=== PATIENT | male | born 1960 | race Caucasian/White ===

== ENCOUNTER 2024-05-23 13:39 | Emergency (ER) | payer BC, SELFPAY ==
[2024-05-23] VITALS (32 sets, daily range): BP systolic 156–215; BP diastolic 65–122; PULSE 72–87; RESP 11–22; TEMP 36.9; O2SAT 94–100
--- NOTE | 2024-05-23 14:00 | DI.CT_ITS ---
Exam(s) CT HEAD CERVICAL SPINE WO EXAM: CT HEAD CERVICAL SPINE WO CLINICAL HISTORY: fall, [place]. TECHNIQUE: Imaging Protocol: Axial computed tomography images with coronal and sagittal reformatted images were created and reviewed COMPARISON: No exams were available for comparison FINDINGS: BRAIN: There are no skull fractures. There is mucosal thickening both maxillary sinuses and fluid level not ed in the right maxillary sinus. No fractures. No bone dehiscence. Other paranasal sinuses are alyssa ar as are the mastoid air cells. There is no evidence of intracranial hemorrhage, mass effect, or shift of midline structures. There are no extra-axial fluid collections. The ventricles are not enlarged or shifted and there is no blo od within the ventricular system nor within the basal cisterns. CERVICAL SPINE: There is no evidence of fracture nor listhesis. No significant prevertebral soft tissue swelling. There is chronic advanced disc space narrowing at C6-7 level. Some lesser disc space narrowing is no brodie at C5-6 and other levels. There is some facet arthropathy evident which is more prominent involv ing multiple facet joints of the right side. There is no significant facet joint malalignment. No significant osseous lesions evident. No cervical ribs. IMPRESSION: No acute intracranial findings on this noninfused CT scan of the brain.Maxillary sinusitis noted. No evidence of cervical spine fracture, malalignment, nor acute compromise of the cervical spinal can al. Degenerative disc disease and facet arthropathy. Report called by myself to ER 05/23/2024 at 2:45 p.m. RADIATION DOSE DELIVERED: 1,360.31mGy.cm Total DLP DATA REPOSITORY: All CT scans at this facility are submitted to the National Radiology Data Registry (NRDR) Dose Index Registry (DIR) with the [employer] (ACR). RADIATION OPTIMIZATION: All CT scans at this facility use at least one of these dose optimization te chniques: automated exposure control; mA and/or kV adjustment per patient size (includes targeted exa ms where dose is matched to clinical indication); or iterative reconstruction.
--- NOTE | 2024-05-23 14:00 | DI.RAD_ITS ---
Exam(s) XR PELVIS AP EXAM: XR PELVIS AP CLINICAL HISTORY: hip pain, fx in yue with pin, fall today. TECHNIQUE: 2D digital imaging was performed. COMPARISON: No exams were available for comparison FINDINGS: Single AP view of the pelvis There is recently placed ORIF hardware across an intertrochanteric fracture of the right hip. No acu te fractures evident on this single view of the pelvis. IMPRESSION: No acute fracture seen on the single AP view of the pelvis. However, see separate study reports dict ated today. DATA REPOSITORY: RADIATION DOSE DELIVERED:
--- NOTE | 2024-05-23 14:00 | DI.CT_ITS ---
Exam(s) CT ABDOMEN PELVIS W EXAM: CT ABDOMEN PELVIS W CLINICAL HISTORY: hip pain post fall, anticoag. TECHNIQUE: Imaging Protocol: Axial computed tomography images with coronal and sagittal reformatted images were created and reviewed CONTRAST MATERIAL: Intravenous: Omnipaque-350 100cc Oral: None COMPARISON: No exams were available for comparison FINDINGS: VISUALIZED LUNG BASES: There are mild benign-appearing increased markings in both lower lobes posteri or basal segments. There are no pleural effusions.. OSSEOUS: Within the field of view of this abdominal study there are partially included multiple left- sided rib fractures. There is a nonacute appearing fracture in the posteromedial aspect of the left 11th rib. There are fractures both posteromedially and posterolaterally in the left 10th rib. Proba clare subacute although the posterolateral fracture may be more acute. There is also increased lung ma rkings directly over this area, possibly small lung contusion. There is a healing subacute appearing fracture of the lateral aspect of the left 9th rib and adjacent left 8th rib. There are no acute ap pearing right-sided rib fractures in the field of view of this abdominal study. There are no vertebr al fractures nor facet malalignment. No sacral fractures nor left hip fractures. There is ORIF hardware in the right hip across a still visible intertrochanteric fracture. In additi on, there is a an oblique fracture in the subtrochanteric right femur which extends beyond the field of view of this study. ABDOMEN: GI: There is evidence of prior surgery in the region of the stomach, possibly bariatric. There is no evidence of bowel obstruction, free air, nor abscess. LIVER: Intact. No laceration. No significant lesions. Mild dilatation of intrahepatic ducts noted in both lobes for, most probably related to prior cholecystectomy. GALLBLADDER/BILIARY: Gallbladder is not seen and presumed to be surgically absent. The CBD diameter measures 7-8 mm, commensurate with post cholecystectomy status. There are no radiopaque calculi in t he CBD. PANCREAS: No evidence of pancreatic mass nor dilatation of the pancreatic duct. SPLEEN: Normal size. No splenic lacerations. Small calcified granulomas are noted in the spleen but no significant spleen lesions. Splenic and portal veins are patent. ADRENALS: Site thickening at the genu of both adrenal glands noted which may be small adenomas. Thes e measure less than 1 cm. KIDNEYS:No evidence of renal laceration or subcapsular hematomas. No solid renal masses nor signific ant cysts. No calculi. No hydronephrosis. No solid renal masses. No calculi nor hydronephrosis.. ABDOMINAL AORTA: The abdominal aorta is heavily calcified but not enlarged. Common iliac arteries ar e also heavily calcified but not enlarged. LYMPH NODES:There is no retroperitoneal nor paraaortic adenopathy. ABDOMINAL WALL: There is a fat only containing left inguinal hernia. There is some air-gas in the lopez bcutaneous fat over the anterior left pelvic wall. Probably related to injection at this site. Ther e is no fluid collection. GI: There is no evidence of bowel obstruction, free air, nor abscess. PELVIS: GI: No evidence of appendicitis.No evidence of sigmoid diverticulitis. LYMPH NODES: There is no intrapelvic nor inguinal adenopathy. REPRODUCTIVE: Prostate size normal. Seminal vesicles unremarkable. URINARY BLADDER: Unremarkable and not distended. IMPRESSION: 1. Partially included in the field of view of this abdominal study are multiple left-sided rib fractu res involving the left 8th through 11th ribs, appearing subacute. However, 1 of the 2 fracture sites in the left 10th rib has a more acute appearance and there are subjacent mild increased lung marking s which may be related to the trauma such as small (possibly resolving) lung contusion. There are no pleural effusions nor pneumothorax. Please note that although the ribs are not included as there is no chest CT scan. 2. Nonacute appearing incidental findings in the abdomen and pelvis as described above but no acute i ntra-abdominal findings which would be trauma related. Called by myself to ER physician 05/23/2024 at 3:02 p.m. RADIATION DOSE DELIVERED: 1,231.43mGy.cm Total DLP DATA REPOSITORY: All CT scans at this facility are submitted to the National Radiology Data Registry (NRDR) Dose Index Registry (DIR) with the [employer] (ACR). RADIATION OPTIMIZATION: All CT scans at this facility use at least one of these dose optimization te chniques: automated exposure control; mA and/or kV adjustment per patient size (includes targeted exa ms where dose is matched to clinical indication); or iterative reconstruction.
--- NOTE | 2024-05-23 14:00 | DI.RAD_ITS ---
Exam(s) XR FEMUR RT EXAM: XR FEMUR RT CLINICAL HISTORY: fall with pain. TECHNIQUE: 2D digital imaging was performed. COMPARISON: No exams were available for comparison FINDINGS: 3 views There is ORIF hardware in the right hip which was apparently placed 03/20/2024 across an intertrochan teric fracture. The main finding here is an acute appearing spiral oblique fracture of the diaphysis of the right fem ur extending along the length of the intramedullary lula and with fracture line extending to the junct ion of the mid and lower thirds of the femur. There is some displacement evident at the fracture sit e. The preexistent intramedullary lula remains intramedullary. IMPRESSION: Acute appearing spiral moderately displaced fracture in the femur in the region of an extending to sl ightly below the supporting intramedullary lula. The site of the recently operated upon intertrochanteric fracture appears satisfactory. No osseous lesions evident. DATA REPOSITORY: RADIATION DOSE DELIVERED:
--- NOTE | 2024-05-23 14:00 | DI.RAD_ITS ---
Exam(s) XR CHEST 2V PA LATERAL EXAM: XR CHEST 2V PA LATERAL CLINICAL HISTORY: fall, trauma. TECHNIQUE: 2D digital imaging was performed. COMPARISON: No exams were available for comparison FINDINGS: 2 views: Left anterior chest wall subcutaneous cardiac loop detector noted Heart size is normal. The mediastinum is not widened. Lungs are clear. No infiltrates nor pleural effusions. No obvious lung contusion nor pneumothorax in this trauma patient. No obvious fractures. IMPRESSION: No acute pulmonary findings. Please note that abdominal CT scan performed today reveals multiple subacute appearing left-sided rib fractures. See that separate report. DATA REPOSITORY: RADIATION DOSE DELIVERED:
[2024-05-23] MEDS: MORPHine 4 MG/ML SYR IVP (14:13)
[2024-05-23 14:38] LABS: Abs Immature Grans 0.09 10^3/uL (0.0-0.06); Absolute Basophil Count 0.07 10^3/uL (0.0-0.2); Absolute Monocyte Count 0.42 10^3/uL (0.1-0.8); Absolute Neutrophil Count 16.64 10^3/uL (1.2-6.7); Basophils % 0.4 %; Eosinophils % 0.4 %; HCT 31.9 % (40.0-50.0); HGB 10.4 g/dL (13.5-17.5); Immature Grans % 0.5 %; Lymphocytes % 6.1 %; MCHC 32.6 % (32.0-36.0); MCV 95 fL (80-95); MPV 9.5 fL (8.0-11.0); Monocytes % 2.3 %; Neutrophils % 90.3 %; Platelet Count 323 10^3/uL (130-400); RBC 3.36 10^6/uL (4.36-5.78); RDW 13.6 % (11.8-14.1); RDW-SD 45.7 fL; WBC 18.43 10^3/uL (4.4-10.8)
[2024-05-23] MEDS: Normal Saline - Diluent 50 ML VIAL IJ (14:39)
[2024-05-23] MEDS: Omnipaque 350 MG/ML 100 ML BTL IJ (14:39)
[2024-05-23 14:43] LABS: Absolute Eosinophil Count 0.07 10^3/uL (0.0-0.7); Absolute Lymphocyte Count 1.12 10^3/uL (1.2-3.4)
[2024-05-23 14:50] LABS: ALT 58 U/L (16-63); AST 36 U/L (15-37); Albumin 3.5 g/dL (3.4-5.0); Alkaline Phosphatase 197 U/L (46-116); Anion Gap 11.7 mmol/L (3-11); BUN 21 mg/dL (7-18); Bilirubin, Total 0.9 mg/dL (0.2-1.0); CO2 26.3 mmol/L (21.0-32.0); CREATININE 1.6 mg/dL (0.70-1.30); Chloride 104 mmol/L (98-107); Estimated GFR 47.82 (mL/min/1.73m2); Glucose 214 mg/dL (74-106); Potassium 4.2 mmol/L (3.5-5.1); Sodium 142 mmol/L (136-145); Total Protein 6.9 g/dL (6.4-8.2)
--- NOTE | 2024-05-23 15:45 | RT.EKG_ITS ---
APPROVED REPORT Exam: Resting ECG Reason for Exam: fall, afib Patient Location: E HR:80 bpm ECG Measurements Heart Rate 80 AXIS FL 163 P 67 QRSd 114 QRS -56 QT 423 T 25 QTc 488 Conclusion Sinus rhythm 80 normal axis no stemi
[2024-05-23] MEDS: HYDROmorphone 2 MG/ML SYR 1 MG IVP ×2 (15:46→16:52)
--- NOTE | 2024-05-23 15:49 | ED.GENADUL_ITS ---
Discharge Plan Discharge Details Chief Complaint: Orthopedic Primary Care Provider: Unknown,Unknown ED Provider: Sri Stock Home Meds and New Rx's Prescriptions: No Action acetaminophen 500 mg capsule 500 mg PO Q6H PRN atorvastatin 40 mg tablet 40 mg PO DAILY bupropion HCl [Wellbutrin XL] 300 mg tablet extended release 24 hr 300 mg PO DAILY calcium carbonate 500 mg calcium (1,250 mg) tablet 500 mg PO BID diclofenac sodium 3 % gel 1 applic topical QID PRN docusate sodium [Colace] 100 mg capsule 100 mg PO BID dofetilide 125 mcg capsule 125 mcg PO BID duloxetine 20 mg capsule,delayed release(DR/EC) 20 mg PO TID metoprolol succinate 50 mg tablet extended release 24 hr 50 mg PO DAILY multivitamin Tablet 1 tab PO DAILY rivaroxaban 20 mg tablet 20 mg PO QPM Rx Instructions: must administer with evening meal sulfasalazine 500 mg tablet 1 g PO BID Rx Instructions: give with food (meal/snack) Trulicity 1.5 mg/0.5 mL pen injector 1.5 mg subcut QWEEK cyanocobalamin (vitamin B-12) [Vitamin B-12] 1,000 mcg tablet 1,000 mcg PO DAILY ergocalciferol (vitamin D2) 1,000 unit capsule 1,000 unit PO DAILY HPI General Date/Time Provider Initiated Documentation: 05/23/24 13:44 . HPI Narrative: The patient is a 63-year-old male with chronic anticoagulation, hypertension, hyperlipidemia, atrial fibrillation, and a recent hip fracture with pin placement in 03/2024. He presents today following a slip and fall on ice. He [place] he accidentally slipped on ice, landing on his right side. He did not lose consciousness or experience any associated chest discomfort. He was unable to assist himself to a standing position and had to drag himself through the snow for help. He also did not experience any abdominal discomfort, nausea, or vomiting. Related Data Home Medications ?Medication ?Instructions ?Recorded ?Confirmed acetaminophen 500 mg capsule 500 mg PO Q6H PRN 05/23/24 05/23/24 atorvastatin 40 mg tablet 40 mg PO DAILY 05/23/24 05/23/24 bupropion HCl 300 mg 24 hr tablet, 300 mg PO DAILY 05/23/24 05/23/24 extended release (Wellbutrin XL) calcium carbonate 500 mg PO BID 05/23/24 05/23/24 cyanocobalamin (vitamin B-12) 1,000 mcg PO DAILY 05/23/24 05/23/24 1,000 mcg tablet (Vitamin B-12) diclofenac sodium 3 % topical gel 1 applic topical QID PRN 05/23/24 05/23/24 docusate sodium 100 mg capsule 100 mg PO BID 05/23/24 05/23/24 (Colace) dofetilide 125 mcg capsule 125 mcg PO BID 05/23/24 05/23/24 dulaglutide 1.5 mg/0.5 mL 1.5 mg subcut QWEEK 05/23/24 05/23/24 subcutaneous pen injector (Trulicity) duloxetine 20 mg capsule,delayed 20 mg PO TID 05/23/24 05/23/24 release ergocalciferol (vitamin D2) 1,000 1,000 unit PO DAILY 05/23/24 05/23/24 unit capsule metoprolol succinate 50 mg 50 mg PO DAILY 05/23/24 05/23/24 tablet,extended release 24 hr multivitamin 1 tab PO DAILY 05/23/24 05/23/24 rivaroxaban 20 mg tablet 20 mg PO QPM 05/23/24 05/23/24 sulfasalazine 500 mg tablet 1 g PO BID 05/23/24 05/23/24 Allergies Allergy/AdvReac Type Severity Reaction Status Date / Time No Known Allergies Allergy Unverified 05/23/24 13:46 General Stated Complaint: Orthopedic ARIES: 3 Exam Narrative Exam Narrative: General Appearance: The patient is alert and oriented, GCS 15. Vital signs: Within normal limits. HEENT: Within normal limits. Respiratory: Within normal limits., No chest wall or thoracic tenderness to left side of chest or visible signs of trauma to right side of chest Gastrointestinal: No abdominal tenderness or visible evidence of trauma. Back, Musculoskeletal: No cervical, thoracic or lumbar spine tenderness or CVA tenderness. Tenderness to palpation to right hip, femur and knee. Well healing postoperative site noted overlying right hip. Right knee with tenderness. No obvious deformity. Neuro: Alert and oriented x 4 pupils equal round reactive to light and accommodation Extremities: Neurovascularly intact to bilateral lower extremities. Abrasion to left knee without tenderness. Right mid femur tenderness without deformity Skin: Warm and dry, no rash. Neurological: The patient is able to follow all basic commands, speaking in complete sentences. Course Vital Signs Vital signs: Vital Signs Pulse 82 05/23/24 13:44 Pulse Oximetry 100 05/23/24 13:44 Temperature 36.9 C 05/23/24 13:46 Temperature Source Oral 05/23/24 13:46 Pulse 83 05/23/24 15:46 Pulse 83 05/23/24 15:46 Respiratory Rate 19 05/23/24 15:46 Blood Pressure 194/71 H 05/23/24 15:46 Blood Pressure Mean 114 05/23/24 15:46 Blood Pressure Position Sitting 05/23/24 13:46 Pulse Oximetry 100 05/23/24 15:46 Oxygen Delivery Method Room Air 05/23/24 13:46 Oxygen Flow Rate 0 05/23/24 13:46 Pain Level 7 05/23/24 15:46 Comment 100mcg fent/1gm tyl 05/23/24 13:46 Lab/Test Results Lab/Test Results: Laboratory Tests Range/Units 05/23/24 14:20 WBC (4.4-10.8) 10^3/uL 18.43 H RBC (4.36-5.78) 10^6/uL 3.36 L Hgb (13.5-17.5) g/dL 10.4 L Hct (40.0-50.0) % 31.9 L MCV (80-95) fL 95 MCH (27.0-33.0) pg 31.0 MCHC (32.0-36.0) % 32.6 RDW (11.8-14.1) % 13.6 Plt Count (130-400) 10^3/uL 323 MPV (8.0-11.0) fL 9.5 Immature Gran % % 0.5 Neutrophils % % 90.3 Lymphocytes % % 6.1 Monocytes % % 2.3 Eosinophils % % 0.4 Basophils % % 0.4 Nucleated RBC % (0.0-0.3) % 0.0 Absolute Neutrophils (1.2-6.7) 10^3/uL 16.64 H Absolute Lymphocytes (1.2-3.4) 10^3/uL 1.12 L Absolute Monocytes (0.1-0.8) 10^3/uL 0.42 Absolute Eosinophils (0.0-0.7) 10^3/uL 0.07 Absolute Basophils (0.0-0.2) 10^3/uL 0.07 Sodium (136-145) mmol/L 142 Potassium (3.5-5.1) mmol/L 4.2 Chloride (98-107) mmol/L 104 Carbon Dioxide (21.0-32.0) mmol/L 26.3 Anion Gap (3-11) mmol/L 11.7 H BUN (7-18) mg/dL 21 H Creatinine (0.70-1.30) mg/dL 1.6 H Est GFR (CKD-EPI 2020) (mL/min/1.73m2) 47.82 Glucose (74-106) mg/dL 214 H Calcium (8.5-10.1) mg/dL 9.0 Total Bilirubin (0.2-1.0) mg/dL 0.9 AST (15-37) U/L 36 ALT (16-63) U/L 58 Alkaline Phosphatase (46-116) U/L 197 H Total Protein (6.4-8.2) g/dL 6.9 Albumin (3.4-5.0) g/dL 3.5 Medical Decision Making Initial Assessment: 63-year-old male with chronic anticoagulation, hypertension, hyperlipidemia, atrial fibrillation, and recent hip fracture with pin in March, presents after slipping on ice and landing on his right side. Denies loss of consciousness, chest discomfort, abdominal discomfort, nausea, or vo miting. Differential Diagnosis: - Right-sided femur fracture: Minimally displaced femur fracture proximally around hardware from previous ORIF. Tenderness to palpation in right hip, femur, and knee. Well-healing postoperative site overlying right hip. No evidence of compartment syndrome clinically. ED Course: - CT scan: Multiple subacute rib fractures on left chest, no intra-abdominal pathology. - Baseline anemia: Hemoglobin 10.2. When compared to prior from 2 months ago this was his baseline - Leukocytosis: Compared to prior. - Pain management: 100 mcg fentanyl, 4 mg morphine, additional morphine dose administered. - Orthopedic consultation: Discussed with Orthopedics, recommends transfer to [facility] or [facility] due to anticoagulated status and fracture around recently placed ORIF device. Pending return call. Final Assessment: Patient with minimally displaced femur fracture around hardware from previous ORIF, multiple subacute rib fractures, baseline anemia, and leukocytosis. Pain managed with fentanyl and morphine. Orthopedic consultation recommends transfer to trauma center. Clinical Impression: - Right-sided femur fracture - Multiple subacute rib fractures - Baseline anemia - Leukocytosis Disposition: - Transfer: Recommended to [facility] or [facility] trauma center. MDM Components Evaluation: - Number of Differential Diagnoses or Management Options: Right-sided femur fracture. - Amount and Complexity of Data Reviewed: CT scan, hemoglobin levels, leukocytosis, orthopedic consultation. - Risk of Complication and Morbidity or Mortality: High due to anticoagulated status and fracture around recently placed ORIF device. Quality:[facility] Health Related Social Needs: No Data to Display [facility] Social History Smoking/Tobacco Use Status: Former Tobacco Use Smoking risk assessment performed?: Yes Alcohol Intake: current Alcohol Intake frequency: holidays/special occasions only Drug use: Never Substance use type: does not use Housing: house Do you feel safe at home: Yes Do you feel safe in your relationship?: Yes Additional Social history: to arrive shortly
--- NOTE | 2024-05-23 16:06 | ED.PROG_ITS ---
Date of service: 05/23/24 Time of Service: 16:06 Medical Decision Making This dictation utilizes [id number] dictation software and may contain unedited grammatical errors. Patient seen in signout, please see GEORGE Mccain's complete note. Essentially this 63-year-old male who hails from the [place] area slipped on the ice this morning with a recent surgery due to femur fracture and undergoing ORIF at [facility] in [place] on 03/22/2024, he has deformity and rotation with a noted spiral fracture around the hardware of his proximal right femur, patient is right foot dominant. Patient is anticoagulated on Xarelto and takes dofetilide for atrial fibrillation. Orthopedics on-call Dr. Da Silva was consulted, states the patient is likely too acute for critical access hospital and surgery team due to comorbidities needs to be transferred to a trauma center, awaiting [facility] consult due to the patient's proximity to this trauma center. Patients' medical history: Atrial fibrillation, hyperlipidemia. Family and social history: Noncontributory. Pertinent exam findings / vital signs include -see Sri Stock PA-C's note. Differential / pathologies of concern include complex femur fracture, gaetano to hardware. Diagnostic studies of: -Reviewed imaging and labs from prior provider, see below - R periprosthetic femur fracture, subacute healing L rib fractures Interventions of: -Pre-medicated for transport w/ 1mg IV hydrmorphone, had reviewed 1mg IVP hydromorphone at 1542. 4mg IVP Zofran given for transport for car sickness. ED Course/Assessment/Plan: Patient seen in signout pending [facility] callback from orthopedics for transferred for complex right periprosthetic femur fracture. I spoke with Dr. Romano of orthopedics at 1609, recommends transfer ED to ED, likely surgery tomorrow. Spoke to ED attending Dr. Charles who accepts the patient for transfer at 1614, patient was premedicated 1mg IVP hydromorphone for transfer. Findings not consistent with neurovascular compromise, expanding compartment. Disposition of Fracture of femur following insertion of orthopedic implant, joint prosthesis, or bone plate, right leg. Patient verbalized understanding of the plan and return to ED criteria and engaged in shared decision making. Medical Records Medical records reviewed: Yes I reviewed the patient's medical records. Imaging Data Radiologic Study: Attestation: I personally reviewed and interpreted this imaging study as follows: Imaging: CT Scan Radiologist's impression: EXAM: CT HEAD CERVICAL SPINE WO CLINICAL HISTORY: fall, [place]. TECHNIQUE: Imaging Protocol: Axial computed tomography images with coronal and sagittal reformatted images were created and reviewed COMPARISON: No exams were available for comparison FINDINGS: BRAIN: There are no skull fractures. There is mucosal thickening both maxillary sinuses and fluid level noted in the right maxillary sinus. No fractures. No bone dehiscence. Other paranasal sinuses are clear as are the mastoid air cells. There is no evidence of intracranial hemorrhage, mass effect, or shift of midline structures. There are no extra-axial fluid collections. The ventricles are not enlarged or shifted and there is no blood within the ventricular system nor within the basal cisterns. CERVICAL SPINE: There is no evidence of fracture nor listhesis. No significant prevertebral soft tissue swelling. There is chronic advanced disc space narrowing at C6-7 level. Some lesser disc space narrowing is noted at C5-6 and other levels. There is some facet arthropathy evident which is more prominent involving multiple facet joints of the right side. There is no significant facet joint malalignment. No significant osseous lesions evident. No cervical ribs. IMPRESSION: No acute intracranial findings on this noninfused CT scan of the brain.Maxillary sinusitis noted. No evidence of cervical spine fracture, malalignment, nor acute compromise of the cervical spinal canal. Degenerative disc disease and facet arthropathy. Report called by myself to ER 05/23/2024 at 2:45 p.m. Radiologic Study #2: Attestation: I personally reviewed and interpreted this imaging study as follows: Imaging: CT Scan Radiologist's impression: EXAM: CT ABDOMEN PELVIS W CLINICAL HISTORY: hip pain post fall, anticoag. TECHNIQUE: Imaging Protocol: Axial computed tomography images with coronal and sagittal reformatted images were created and reviewed CONTRAST MATERIAL: Intravenous: Omnipaque-350 100cc Oral: None COMPARISON: No exams were available for comparison FINDINGS: VISUALIZED LUNG BASES: There are mild benign-appearing increased markings in both lower lobes posterior basal segments. There are no pleural effusions.. OSSEOUS: Within the field of view of this abdominal study there are partially included multiple left-sided rib fractures. There is a nonacute appearing fra cture in the posteromedial aspect of the left 11th rib. There are fractures both posteromedially and posterolaterally in the left 10th rib. Probably subacute although the posterolateral fracture may be more acute. There is also increased lung markings directly over this area, possibly small lung contusion. There is a healing subacute appearing fracture of the lateral aspect of the left 9th rib and adjacent left 8th rib. There are no acute appearing right-sided rib fractures in the field of view of this abdominal study. There are no vertebral fractures nor facet malalignment. No sacral fractures nor left hip fractures. There is ORIF hardware in the right hip across a still visible intertrochanteric fracture. In addition, there is a an oblique fracture in the subtrochanteric right femur which extends beyond the field of view of this study. ABDOMEN: GI: There is evidence of prior surgery in the region of the stomach, possibly bariatric. There is no evidence of bowel obstruction, free air, nor abscess. LIVER: Intact. No laceration. No significant lesions. Mild dilatation of intrahepatic ducts noted in both lobes for, most probably related to prior cholecystectomy. GALLBLADDER/BILIARY: Gallbladder is not seen and presumed to be surgically absent. The CBD diameter measures 7-8 mm, commensurate with post cholecystectomy status. There are no radiopaque calculi in the CBD. PANCREAS: No evidence of pancreatic mass nor dilatation of the pancreatic duct. SPLEEN: Normal size. No splenic lacerations. Small calcified granulomas are noted in the spleen but no significant spleen lesions. Splenic and portal veins are patent. ADRENALS: Site thickening at the genu of both adrenal glands noted which may be small adenomas. These measure less than 1 cm. KIDNEYS:No evidence of renal laceration or subcapsular hematomas. No solid renal masses nor significant cysts. No calculi. No hydronephrosis. No solid renal masses. No calculi nor hydronephrosis.. ABDOMINAL AORTA: The abdominal aorta is heavily calcified but not enlarged. Common iliac arteries are also heavily calcified but not enlarged. LYMPH NODES:There is no retroperitoneal nor paraaortic adenopathy. ABDOMINAL WALL: There is a fat only containing left inguinal hernia. There is some air-gas in the subcutaneous fat over the anterior left pelvic wall. Probably related to injection at this site. There is no fluid collection. GI: There is no evidence of bowel obstruction, free air, nor abscess. PELVIS: GI: No evidence of appendicitis.No evidence of sigmoid diverticulitis. LYMPH NODES: There is no intrapelvic nor inguinal adenopathy. REPRODUCTIVE: Prostate size normal. Seminal vesicles unremarkable. URINARY BLADDER: Unremarkable and not distended. IMPRESSION: 1. Partially included in the field of view of this abdominal study are multiple left-sided rib fractures involving the left 8th through 11th ribs, appearing subacute. However, 1 of the 2 fracture sites in the left 10th rib has a more acute appearance and there are subjacent mild increased lung markings which may be related to the trauma such as small (possibly resolving) lung contusion. There are no pleural effusions nor pneumothorax. Please note that although the ribs are not included as there is no chest CT scan. 2. Nonacute appearing incidental findings in the abdomen and pelvis as described above but no acute intra-abdominal findings which would be trauma related. Called by myself to ER physician 05/23/2024 at 3:02 p.m. Radiologic Study #3: Attestation: I personally reviewed and interpreted this imaging study as follows: Imaging: X-Ray Radiologist's impression: EXAM: XR CHEST 2V PA LATERAL CLINICAL HISTORY: fall, trauma. TECHNIQUE: 2D digital imaging was performed. COMPARISON: No exams were available for comparison FINDINGS: 2 views: Left anterior chest wall subcutaneous cardiac loop detector noted Heart size is normal. The mediastinum is not widened. Lungs are clear. No infiltrates nor pleural effusions. No obvious lung contusion nor pneumothorax in this trauma patient. No obvious fractures. IMPRESSION: No acute pulmonary findings. Please note that abdominal CT scan performed today reveals multiple subacute appearing left-sided rib fractures. See that separate report. Radiologic Study #4: Attestation: I personally reviewed and interpreted this imaging study as follows: Imaging: X-Ray Radiologist's impression: EXAM: XR PELVIS AP CLINICAL HISTORY: hip pain, fx in mar with pin, fall today. TECHNIQUE: 2D digital imaging was performed. COMPARISON: No exams were available for comparison FINDINGS: Single AP view of the pelvis There is recently placed ORIF hardware across an intertrochanteric fracture of the right hip. No acute fractures evident on this single view of the pelvis. IMPRESSION: No acute fracture seen on the single AP view of the pelvis. However, see separate study reports dictated today. Radiologic Study #5: Attestation: I personally reviewed and interpreted this imaging study as follows: Imaging: X-Ray Radiologist's impression: EXAM: XR FEMUR RT CLINICAL HISTORY: fall with pain. TECHNIQUE: 2D digital imaging was performed. COMPARISON: No exams were available for comparison FINDINGS: 3 views There is ORIF hardware in the right hip which was apparently placed 03/20/2024 across an intertrochanteric fracture. The main finding here is an acute appearing spiral oblique fracture of the diaphysis of the right femur extending along the length of the intramedullary lula and with fracture line extending to the junction of the mid and lower thirds of the femur. There is some displacement evident at the fracture site. The preexistent intramedullary lula remains intramedullary. IMPRESSION: Acute appearing spiral moderately displaced fracture in the femur in the region of an extending to slightly below the supporting intramedullary lula. The site of the recently operated upon intertrochanteric fracture appears satisfactory. No osseous lesions evident. Lab Data Lab results reviewed: Yes I reviewed the patient's lab results. Labs: Laboratory Tests Range/Units 05/23/24 14:20 WBC (4.4-10.8) 10^3/uL 18.43 H RBC (4.36-5.78) 10^6/uL 3.36 L Hgb (13.5-17.5) g/dL 10.4 L Hct (40.0-50.0) % 31.9 L MCV (80-95) fL 95 MCH (27.0-33.0) pg 31.0 MCHC (32.0-36.0) % 32.6 RDW (11.8-14.1) % 13.6 Plt Count (130-400) 10^3/uL 323 MPV (8.0-11.0) fL 9.5 Immature Gran % % 0.5 Neutrophils % % 90.3 Lymphocytes % % 6.1 Monocytes % % 2.3 Eosinophils % % 0.4 Basophils % % 0.4 Nucleated RBC % (0.0-0.3) % 0.0 Absolute Neutrophils (1.2-6.7) 10^3/uL 16.64 H Absolute Lymphocytes (1.2-3.4) 10^3/uL 1.12 L Absolute Monocytes (0.1-0.8) 10^3/uL 0.42 Absolute Eosinophils (0.0-0.7) 10^3/uL 0.07 Absolute Basophils (0.0-0.2) 10^3/uL 0.07 Sodium (136-145) mmol/L 142 Potassium (3.5-5.1) mmol/L 4.2 Chloride (98-107) mmol/L 104 Carbon Dioxide (21.0-32.0) mmol/L 26.3 Anion Gap (3-11) mmol/L 11.7 H BUN (7-18) mg/dL 21 H Creatinine (0.70-1.30) mg/dL 1.6 H Est GFR (CKD-EPI 2020) (mL/min/1.73m2) 47.82 Glucose (74-106) mg/dL 214 H Calcium (8.5-10.1) mg/dL 9.0 Total Bilirubin (0.2-1.0) mg/dL 0.9 AST (15-37) U/L 36 ALT (16-63) U/L 58 Alkaline Phosphatase (46-116) U/L 197 H Total Protein (6.4-8.2) g/dL 6.9 Albumin (3.4-5.0) g/dL 3.5 Quality:SDOH Health Related Social Needs: No Data to Display Discharge Plan Disposition Patient Disposition: Transfer-Acute Inpatient Care Specific Acute Inpt Facility: [facility] Condition: Stable Discharge Details Clinical Impression: Fracture of femur following insertion of orthopedic implant, joint prosthesis, or bone plate, right leg Primary Care Provider: Unknown,Unknown ED Provider: Sid Mayorga Home Meds and New Rx's Prescriptions: No Action acetaminophen 500 mg capsule 500 mg PO Q6H PRN atorvastatin 40 mg tablet 40 mg PO DAILY bupropion HCl [Wellbutrin XL] 300 mg tablet extended release 24 hr 300 mg PO DAILY calcium carbonate 500 mg calcium (1,250 mg) tablet 500 mg PO BID diclofenac sodium 3 % gel 1 applic topical QID PRN docusate sodium [Colace] 100 mg capsule 100 mg PO BID dofetilide 125 mcg capsule 125 mcg PO BID duloxetine 20 mg capsule,delayed release(DR/EC) 20 mg PO TID metoprolol succinate 50 mg tablet extended release 24 hr 50 mg PO DAILY multivitamin Tablet 1 tab PO DAILY rivaroxaban 20 mg tablet 20 mg PO QPM Rx Instructions: must administer with evening meal sulfasalazine 500 mg tablet 1 g PO BID Rx Instructions: give with food (meal/snack) Trulicity 1.5 mg/0.5 mL pen injector 1.5 mg subcut QWEEK cyanocobalamin (vitamin B-12) [Vitamin B-12] 1,000 mcg tablet 1,000 mcg PO DAILY ergocalciferol (vitamin D2) 1,000 unit capsule 1,000 unit PO DAILY Discharge Data Discharge Date/Time-TO BE ENTERED AT DEPARTURE: 05/23/24 17:18
[2024-05-23] MEDS: Lidocaine 2% Jelly 6 ML SYR (16:41)
[2024-05-23 16:49] LABS: Bilirubin Negative (Negative); Blood Trace-intact (Negative); Clarity Clear (Clear); Glucose Negative (Negative); Ketones 15 mg/dL (Negative); Leukocyte Esterase Negative (Negative); Nitrite Negative (Negative); Specific Gravity 1.015 (1.005-1.025); pH 5.5 (5-8)
[2024-05-23 16:50] LABS: Bacteria Negative HPF (Negative); C & S Indicated? No; Casts Negative LPF (Negative); Crystals Negative HPF (Negative); Epithelial Cells Negative HPF (Negative); Mucus Negative (Negative); RBC 0-2 HPF (0-2); WBC Negative HPF (0-5)
[2024-05-23] MEDS: Ondansetron 4 MG/2 ML VIAL IVP (16:58)
--- NOTE | 2024-05-25 09:25 | NUR.NOTE ---
Patient EKG was performed after time change. It is 1 hour off. Nursing Note:
== END 2024-05-23 17:18 | disposition short-term general hospital (02) ==
PROVIDERS: Physician Assistant; Emergency Provider Physician Assistant
DX: M96.661 Fracture of femur following insertion of orthopedic implant, joint prosthesis, or bone plate, right leg (principal); W00.0XXA Fall on same level due to ice and snow, initial encounter
CPT/HCPCS: 00123; 36415; 51702; 73552; 80053; 86850; 86900; 86901; 93005; 96374; 96375; 96376; 99285; 70450; 71046; 72125; 72170; 74177; 81003; 81015; 85025; 93010; J1171; J2270; J2405; J3490